=== PATIENT | male | born 2000 | race Caucasian/White ===

== ENCOUNTER 2019-09-07 19:10 | Emergency (ER) | payer OTHER ==
[~2019-09-07] VITALS: Ht 175.3 cm; Wt 63.8 kg
[2019-09-07 19:19] VITALS: BP 118/96
--- NOTE | 2019-09-07 19:24 | NUR ---
PT AAOX4. AMBULATORY WITH STEADY GAIT. PT C/O "MY LEFT LUNG IS COLLAPSED." PT STATED IT STARTED AFTER HE STARTED SMOKIGN WEED X4 DAYS AGO. PT ADMITTED TO SMOKING TODAY WELL. PT STATED HE TRAVELED FROM [place] A COUPLE DAYS. UPON ASSESSMENT PT SAT 100 ON ROOM AIR, APPEARS TO BE ANXIOUS, RR EVEN AND UNLABORED, BREATH SOUNDS CLEAR. PLACED ON MONITOR AND PULSE OX. VSS. AT BEDSIDE FOR EVAL. WILL CONTINUE TO MONITOR.
--- NOTE | 2019-09-07 19:25 | NUR ---
PT CAME TO THE ED C/O SOB X 1 DAY. PT STATES THAT "I FEEL LIKE ONLY ONE LUNG IS WORKING". RECENT TRAVEL FROM [place]. PT AAOX4, VSS, SATTING 100% ON RA. PT CONNECTED TO THE [employer] EXECUTIVE AND POX.
--- NOTE | 2019-09-07 19:27 | NUR ---
AWAITING CHEST XRAY
--- NOTE | 2019-09-07 20:31 | NUR ---
Patient discharged to home in stable condition. Written and verbal after care instructions given. Patient verbalizes understanding of instruction.
== END 2019-09-07 20:31 | disposition home or self-care (01) ==
LOC: ER 19:14
DX: F12.10 Cannabis abuse, uncomplicated (principal); J45.909 Unspecified asthma, uncomplicated
CPT/HCPCS: 71045-TC